=== PATIENT | female | born 1955 | race Native Hawaiian/Other Pacific Islander ===

== ENCOUNTER 2019-01-11 23:07 | Emergency (ER) | payer OTHER ==
[2019-01-11 23:13] VITALS: O2SAT 97
[2019-01-11] MEDS ORDERED: Sodium Chloride 0.9% 1,000 ML IV ONE (23:28)
[2019-01-11 23:35] LABS: BASO # 0.1 K/uL (0.0-0.2); BASO % 0.5 % (0.0-2.0); EOS # 0.2 K/uL (0.0-0.7); EOS % 1.5 % (0.0-4.0); HEMOGLOBIN 14.3 g/dL (11.0-16.0); LYMPH # 0.6 K/uL (1.0-4.3); LYMPH % 5.8 % (20.0-40.0); MEAN CELL VOLUME 92.4 fL (81.0-99.0); MEAN CORPUSCULAR HEMOGLOBIN 31.9 pg (27.0-31.0); MEAN CORPUSCULAR HGB CONC 34.6 g/dL (33.0-37.0); MEAN PLATELET VOLUME 9.8 fL (7.2-11.7); MONO # 0.3 K/uL (0.0-0.8); MONO % 3.1 % (0.0-10.0); NEUT # 9.6 K/uL (1.8-7.0); NEUT % 89.1 % (50.0-75.0); PLATELET COUNT 304 K/uL (130-400); RBC 4.48 Mil/uL (3.80-5.20); RED CELL DISTRIBUTION WIDTH 12.8 % (11.5-14.5); WHITE BLOOD COUNT 10.8 K/uL (4.8-10.8)
[2019-01-11 23:47] LABS: ALB/GLOB RATIO 1.4 (1.0-2.1); ALBUMIN 4.9 g/dL (3.5-5.0); ALT/SGPT 29 U/L (9-52); AST/SGOT 43 U/L (14-36); BLOOD UREA NITROGEN 12 mg/dL (7-17); CALCIUM 9.6 mg/dl (8.6-10.4); GFR NON-AFRICAN AMERICAN > 60; LIPASE 27 U/L (23-300)
--- NOTE | 2019-01-12 00:01 | C.PDOC ---
History Of Present Illness 63 year old female presents to the ED c/o nausea, vomit and 10-20 watery stools. Patient reports eating fish today for lunch at home. Patient denies fever, chills, rash, dysuria, hematuria, recent travel, sick contacts. Time Seen by Provider: 01/11/19 23:24 Chief Complaint (Nursing): Abdominal Pain History Per: Patient History/Exam Limitations: no limitations Onset/Duration Of Symptoms: Hrs Current Symptoms Are (Timing): Still Present Context: Food Location Of Pain/Discomfort: Diffuse Quality Of Discomfort: "Pain" Associated Symptoms: Nausea, Vomiting, Diarrhea. denies: Constipation, Urinary Symptoms Exacerbating Factors: Food Recent travel outside of the [place]: No Additional History Per: Patient Abnormal Vaginal Bleeding: No Past Medical History Reviewed: Historical Data, Nursing Documentation, Vital Signs Vital Signs: Last Vital Signs Temp 98.2 F 01/11/19 23:09 Pulse 89 01/11/19 23:09 Resp 16 01/11/19 23:09 BP 130/79 01/11/19 23:09 Pulse Ox 97 01/11/19 23:09 - Medical History PMH: HTN, Hypercholesterolemia Surgical History: No Surg Hx Family History: States: Unknown Family Hx - Social History Hx Alcohol Use: No Hx Substance Use: No Review Of Systems Constitutional: Negative for: Fever, Chills Cardiovascular: Negative for: Chest Pain, Palpitations Respiratory: Negative for: Cough, Shortness of Breath Gastrointestinal: Positive for: Nausea, Vomiting, Diarrhea Genitourinary: Negative for: Dysuria, Hematuria Skin: Negative for: Rash Neurological: Negative for: Weakness, Numbness, Headache, Dizziness Physical Exam - Physical Exam Appears: Non-toxic, No Acute Distress Skin: Normal Color, Warm, Dry Head: Atraumatic, Normacephalic Eye(s): bilateral: Normal Inspection Oral Mucosa: Dry Neck: Normal ROM, Supple Chest: Symmetrical Cardiovascular: Rhythm Regular Respiratory: Normal Breath Sounds, No Rales, No Rhonchi, No Wheezing Gastrointestinal/Abdominal: Bowel Sounds (hyperactive), Soft, Tenderness (vaguely ), No Guarding, No Rebound, Other (obese) Back: No CVA Tenderness Extremity: Normal ROM, No Tenderness, No Swelling Neurological/Psych: Oriented x3, Normal Speech, Normal Cognition Gait: Steady ED Course And Treatment - Laboratory Results Result Diagrams: 01/11/19 23:33 01/11/19 23:33 Lab Results: Total Bilirubin 1.0 mg/dL (0.2-1.3) 01/11/19 23:33 AST 43 U/L (14-36) H D 01/11/19 23:33 ALT 29 U/L (9-52) 01/11/19 23:33 Alkaline Phosphatase 79 U/L (38-126) 01/11/19 23:33 Total Protein 8.3 g/dL (6.3-8.3) 01/11/19 23:33 Albumin 4.9 g/dL (3.5-5.0) 01/11/19 23:33 Globulin 3.4 gm/dL (2.2-3.9) 01/11/19 23:33 Albumin/Globulin Ratio 1.4 (1.0-2.1) 01/11/19 23:33 Lipase 27 U/L (23-300) 01/11/19 23:33 O2 Sat by Pulse Oximetry: 97 (ON RA) Pulse Ox Interpretation: Normal Medical Decision Making Medical Decision Making: Plan: * Labs * pepcid 20 mg IVP * IV fluids * Toradol 30 mg IVP * Zofran 4 mg IVP * UA viral vs food gastroenteritis benign belly and labs no sig dehydration Disposition Doctor Will See Patient In The: Office Counseled Patient/Family Regarding: Studies Performed, Diagnosis - Disposition Referrals: Claude Whitney MD [Staff Provider] - Disposition: HOME/ ROUTINE Disposition Time: 00:01 Condition: GOOD Additional Instructions: drink plenty of water/fluids BRAT diet: bananas, white rice, apples, toast/bread for 2 days Prescriptions: Ondansetron ODT [Zofran ODT] 4 mg PO Q6H PRN #6 odt PRN Reason: Nausea/Vomiting Instructions: Viral Gastroenteritis, Nausea and Vomiting, Adult (DC) Forms: [facility] (Kittitian) - Clinical Impression Clinical Impression: Nausea & vomiting, Diarrhea - Scribe Statement The provider has reviewed the documentation as recorded by the Scribe Choco Hart All medical record entries made by the Scribe were at my direction and personally dictated by me. I have reviewed the chart and agree that the record accurately reflects my personal performance of the history, physical exam, medical decision making, and the department course for this patient. I have also personally directed, reviewed, and agree with the discharge instructions and disposition.
[2019-01-12 01:03] LABS: EOSINOPHIL 1 % (0-4); LYMPHOCYTE 6 % (20-40); MONOCYTE 2 % (0-10); NEUTROPHIL 91 % (50-75); PLATELET ESTIMATE NORMAL (NORMAL); TOTAL CELLS COUNTED 100
[2019-01-12 01:14] VITALS: BP 128/76; PULSE 88; RESP 20; TEMP 98.4
== END 2019-01-12 01:12 | disposition home or self-care (01) ==
LOC: C.ER 23:07
DX: R11.2 Nausea with vomiting, unspecified (principal); R19.7 Diarrhea, unspecified
CPT/HCPCS: 80053; 83690; 85025; 96374; 96375; 99284; J1885; J2405; J7030

== ENCOUNTER 2019-03-03 08:08 | Outpatient (CLI) | payer OTHER | END 2019-03-03 08:09 | disposition home or self-care (01) | LOC: C.MRIC 08:09 ==